=== PATIENT | female | born 1950 | race Caucasian/White ===

== ENCOUNTER → 2017-04-09 11:53 | Emergency (ER) | payer BC ==
[~2017-04-09 11:53] MED LIST: Dexamethasone IV* 4 MG/ML 1 ML (4 MG) IM ONE; Ketorolac INJ* 30 MG/ML 1 ML VIAL IM ONE; oxyCODONE/Acetamin 5/325 MG* TAB PO ONE
[2017-04-09 12:15] VITALS: BP 149/74
--- NOTE | 2017-04-09 14:37 | RAD ---
HISTORY: Back pain COMPARISONS: None VIEWS: 3 , Frontal, lateral, and coned-down lateral sacral views of the lumbar spine FINDINGS: ALIGNMENT: There is a mild levoscoliotic curvature of the spine. There is trace anterolisthesis of L4 on L5. VERTEBRAL BODIES: There is mild anterolateral marginal osteophyte formation. JOINTS: There is facet osteoarthritis most pronounced at L4-L5 and L5-S1 INTERVERTEBRAL DISCS: There is diffuse loss of intervertebral disc height. SOFT TISSUE: Unremarkable. OTHER: The pelvis is unremarkable. The lung bases are clear. IMPRESSION: DEGENERATIVE DISC DISEASE AND OSTEOARTHRITIS, MOST PRONOUNCED AT L4-L5 AND L5-S1
[2017-04-09 15:33] LABS: Urine Appearance Clear; Urine Blood 2+ (Negative); Urine Color Yellow; Urine Ketones Negative (Negative); Urine Protein Negative (Negative); Urine Specific Gravity 1.013 (1.010-1.030); Urine Urobilinogen Negative (Negative)
--- NOTE | 2017-04-09 16:22 | ED ---
Harrison Candelaria Gabriel, scribed for Eduardo Storey MD on 04/09/17 at 1240 . Back Pain - HPI Summary HPI Summary: This patient is a 67 year old F presenting to [facility] with a chief complaint of back pain since she woke up. The patient rates the pain 10/10 in severity and located over her spine. Symptoms aggravated by movement. Patient denies LE pain, urinary symptoms, saddle anesthesia, and trauma. Patient has not had lower back pain before. - History of Current Complaint Chief Complaint: EDBackInjuryPain Stated Complaint: BACK PAIN Hx Obtained From: Patient Onset/Duration: Lasting Hours, Still Present Onset/Duration: Atraumatic, Still Present Timing: Constant Severity Initially: Severe Severity Currently: Severe Pain Intensity: 10 Pain Scale Used: 0-10 Numeric Associated Signs And Symptoms: Positive: Negative - LE pain, urinary symptoms, saddle anesthesia, and trauma - Allergies/Home Medications Allergies/Adverse Reactions: Allergies Allergy/AdvReac Type Severity Reaction Status Date / Time No Known Allergies Allergy Verified 04/09/17 13:00 PMH/Surg Hx/FS Hx/Imm Hx Endocrine/Hematology History: Denies: Hx Diabetes Cardiovascular History: Reports: Hx Hypertension Denies: Hx Atrial Fibrillation, Hx Coronary Artery Disease, Hx Deep Vein Thrombosis, Hx Hypercholesterolemia Respiratory History: Denies: Hx Asthma, Hx Chronic Obstructive Pulmonary Disease (COPD) History: Denies: Hx Acute Renal Failure, Hx Benign Prostatic Hyperplasia Neurological History: Denies: Hx CVA, Hx Dementia Infectious Disease History: No Infectious Disease History: Denies: Traveled Outside the [place] in Last 30 Days - Family History Known Family History: Positive: Hypertension Negative: Respiratory Disease, Seizure Disorder - Social History Lives: With Family Alcohol Use: None Hx Substance Use: No Substance Use Type: Reports: None Hx Tobacco Use: No Smoking Status (MU): Never Smoked Tobacco Review of Systems Constitutional: Negative - trauma Negative: dysuria, hematuria, incontinence Musculoskeletal: Negative - LE pain Positive: Other - lower back pain Neurological: Negative - saddle anesthesia All Other Systems Reviewed And Are Negative: Yes Physical Exam - Summary Physical Exam Summary: Appearance: Well-appearing, Well-nourished Skin: Warm Eyes: Normal ENT: Normal Neck: Supple, nontender Respiratory: Clear to auscultation Cardiovascular: Normal Abdomen: Soft, nontender Back: no midline tenderness in thoracic or lumbar area. Positive straight leg test on right side, no sensory deficit Bowel: Present Musculoskeletal: Normal, Strength/ROM Intact. No weakness of numbness, pain reproduced with hip flexion bilaterally Neurological: Normal, A&Ox3 Psychiatric: Normal Triage Information Reviewed: Yes Vital Signs On Initial Exam: Initial Vitals Temp Pulse Resp BP Pulse Ox 98.1 F 97 18 149/74 100 04/09/17 12:01 04/09/17 12:01 04/09/17 12:01 04/09/17 12:01 04/09/17 12:01 Vital Signs Reviewed: Yes - Yady Coma Scale Coma Scale Total: 15 Diagnostics - Vital Signs Vital Signs Temp Pulse Resp BP Pulse Ox 04/09/17 12:19 52 18 100 04/09/17 12:01 98.1 F 97 18 149/74 100 - Laboratory Lab Results: Lab Results 04/09/17 Range/Units 15:08 Urine Color Yellow Urine Appearance Clear Urine pH 5.0 (5-9) Ur Specific [place] 1.013 (1.010-1.030) Urine Protein Negative (Negative) Urine Ketones Negative (Negative) Urine Blood 2+ H (Negative) Urine Nitrate Negative (Negative) Urine Bilirubin Negative (Negative) Urine Urobilinogen Negative (Negative) Ur Leukocyte Esterase 1+ H (Negative) Urine WBC (Auto) Trace(0-5/hpf) (Absent) Urine RBC (Auto) 1+(3-5/hpf) H (Absent) Ur Squamous Epith Cells Present H (Absent) Urine Bacteria Absent (Absent) Urine Glucose Negative (Negative) Lab Statement: Any lab studies that have been ordered have been reviewed, and results considered in the medical decision making process. - Radiology L-Spine xray Radiology Interpretation Completed By: Radiologist - DEGENERATIVE DISC DISEASE AND OSTEOARTHRITIS, MOST PRONOUNCED AT L4-L5 AND L5-S1 ED physician has reviewed this radiology report. Back Pain Course/Dx - Course Assessment/Plan: feels better after meds, no weakness, instructed to fu with orthopedist, agrees to and understands dc instructions - Diagnoses Provider Diagnoses: Back pain Discharge - Discharge Plan Condition: Improved Disposition: HOME Prescriptions: Methylprednisolone [Medrol Dosepak 4 MG*] 4 mg PO .SEE [employer] #21 tab Patient Education Materials: Lumbar Radiculopathy (ED) Referrals: Jaden Alas MD [Primary Care Provider] - Cary Gupta MD [Medical Doctor] - Additional Instructions: PLEASE MAKE AN APPOINTMENT FIRST THING IN THE MORNING TO BE SEEN BY A [employer] FRONT END DEVELOPER PLEASE RETURN IMMEDIATELY TO THE ER IF YOU HAVE ANY WORSENING OR CONCERNING SYMPTOMS PLEASE MAKE AN APPOINTMENT TO BE SEEN BY YOUR PRIMARY CARE DOCTOR WITHIN 1 WEEK The documentation as recorded by the Harrison burns Gabriel accurately reflects the service I personally performed and the decisions made by me, Eduardo Storey MD.
== END | disposition home or self-care (01) ==
LOC: ED 11:53
DX: M54.9 Dorsalgia, unspecified (principal); Z86.79 Personal history of other diseases of the circulatory system
CPT/HCPCS: 72100; 81003; 81015; 87086; 96372; 99282; A9270-GY; J1100; J1885